=== PATIENT | male | born 1985 ===

== ENCOUNTER 2019-03-16 14:14 | Day surgery (SDC) | payer OTHER ==
[2019-03-16] VITALS (9 sets, daily range): BP systolic 94–143; BP diastolic 51–79
[~2019-03-16] VITALS: Ht 180.3 cm; Wt 84.1 kg
[2019-03-16] MEDS ORDERED: BUPIVAcaine/PF 2.5 mg/ml (0.25%) 30ml vial ONE (14:50)
[2019-03-16] MEDS ORDERED: cefazolin/dext.iso 2gm/100ml 100 ML IV ONE (14:50)
[2019-03-16] MEDS ORDERED: famotidine 10mg tablet PO ONE (14:55)
[2019-03-16] MEDS ORDERED: ringers solution, lacted 1,000 ML IV SCH ×2 (15:05→16:08)
[2019-03-16] MEDS ORDERED: dexamethasone sod phosphate 10mg/ml inj ONE (15:08)
[2019-03-16] MEDS ORDERED: sevoflurane 250ml liquid IH ONE (15:08)
[2019-03-16 15:10] LABS: BASOPHILS # (AUTO) 0.1 X10'3 (0-0.2); BASOPHILS % (AUTO) 1.1 % (0-1); EOSINOPHILS # (AUTO) 0.3 X10'3 (0-0.9); EOSINOPHILS % (AUTO) 4.8 % (0-6); LYMPHOCYTES # (AUTO) 1.6 X10'3 (1.1-4.8); LYMPHOCYTES % (AUTO) 29.1 % (21-51); MEAN CORPUSCULAR HEMOGLOBIN 27.6 PG (27.0-31.0); MEAN CORPUSCULAR HGB CONC 33.5 g/dL (33.0-36.5); MEAN CORPUSCULAR VOLUME 82.5 FL (78-98); MEAN PLATELET VOLUME 7.3 FL (7.4-10.4); MONOCYTES # (AUTO) 0.5 X10'3 (0-0.9); MONOCYTES % (AUTO) 10.1 % (2-12); NEUTROPHILS % (AUTO) 54.9 % (42-75); PRE OP HEMATOCRIT 36.6 % (42.0-52.0); PRE OP HEMOGLOBIN 12.3 g/dL (14.0-17.9); PRE OP PLATELET COUNT 297 X10'3 (140-440); RED BLOOD COUNT 4.44 X10'6 (4.70-6.10)
[2019-03-16] MEDS ORDERED: propofol inj 20 ML IV ONE (15:10)
[2019-03-16] MEDS ORDERED: LIDOcaine 2% (20mg/ml) 5ml vial ONE (15:10)
[2019-03-16] MEDS ORDERED: fentaNYL /PF 50mcg/ml 5ml ampule ONE (15:10)
[2019-03-16] MEDS ORDERED: ROPIVAcaine 0.5% (5mg/ml) 30ml vial ONE ×2 (15:10→16:46)
[2019-03-16] MEDS ORDERED: midazolam 2 mg/2 ml injection ONE (15:10)
[2019-03-16 15:27] LABS: ALBUMIN 3.5 G/DL (3.4-5.0); ALBUMIN/GLOBULIN RATIO 1.1 (1.1-1.5); ALKALINE PHOSPHATASE 79 IU/L (46-116); BLOOD UREA NITROGEN 13 MG/DL (7-18); BUN/CREATININE RATIO 13.1 (5.4-32.0); CALCIUM 8.7 MG/DL (8.5-10.1); CHLORIDE 108 MMOL/L (99-107); CREATININE 0.99 MG/DL (0.60-1.10); PRE OP ALT 43 U/L (30-65); PRE OP ANION GAP 7 (8-16); PRE OP AST 26 U/L (10-37); PRE OP BILIRUB, TOTAL 0.6 MG/DL (0.0-1.0); PRE OP GLUCOSE 80 MG/DL (70-104); PRE OP POTASSIUM 4.3 MMOL/L (3.4-5.1); PRE OP SODIUM 143 MMOL/L (135-145); TOTAL CARBON DIOXIDE 28.5 MMOL/L (24-32); TOTAL PROTEIN 6.7 G/DL (6.4-8.2); eGFR 87 ML/MIN
[2019-03-16] MEDS ORDERED: ondansetron/PF 4mg/2ml inj ONE (15:54)
[2019-03-16] MEDS ORDERED: meperidine/PF 25mg/ml syringe IV PRN ×3 (16:10)
[2019-03-16] MEDS ORDERED: ondansetron/PF 4mg/2ml inj IV PRN (16:10)
[2019-03-16] MEDS ORDERED: proCHLORperazine 10 MG/2 ml inj IV PRN (16:10)
[2019-03-16] MEDS ORDERED: morphine 4 MG/ML inj SYRINge IV PRN ×2 (16:10)
--- NOTE | 2019-03-16 17:25 | NUR ---
Received from OR via BED, accompanied by Anesthesiologist DR JOHNSON-- and report given by Anesthesiolgist. PATIENT A&OX4, DENIES PAIN, V/S WNL, NEUROVASCULAR CHECKS INTACT, 20G PIV LUE, SCD ON, DRESSING TO LEFT KNEE CDI
[2019-03-16] MEDS ORDERED: ketorolac trometh. 30mg/ml inj. IV ONE (18:00)
--- NOTE | 2019-03-16 18:25 | NUR ---
PATIENT A&OX4, DENIES PAIN, V/S WNL, NEUROVASCULAR CHECKS INTACT, 20G PIV LUE D/C, SCD OFF, DRESSING TO LEFT KNEE CDI. 2 CRUTCHES GIVEN AND PATIENT TO BE NONE WEIGHT BEARING AND HE AND GUARDS UNDERSTAND THIS. I HAVE REVIEWED D/C INSTRUCTIONS WITH PATIENT AND GUARDS AND THEY HAVE VERBALIZED UNDERSTANDING. PATIENT D/C TO GROUP HOME TRANSPORT WITH ALL BELONGINGS AND GUARDS GAVE TRANSPORT.
== END 2019-03-16 18:25 ==
LOC: PAS 14:14
PROVIDERS: ATTEND Orthopaedic Surgery
DX: S83.252A Bucket-handle tear of lateral meniscus, current injury, left knee, initial encounter (principal); M93.262 Osteochondritis dissecans, left knee; F32.9 Major depressive disorder, single episode, unspecified; G89.18 Other acute postprocedural pain; X58.XXXA Exposure to other specified factors, initial encounter; Y93.89 Activity, other specified; Y92.89 Other specified places as the place of occurrence of the external cause; Y99.8 Other external cause status
CPT/HCPCS: 27416; 29881; 36415; 64447; 80053; 85025; J1100; J1885; J2001; J2250; J2405; J2704; J3010; J3490; J7120; A4215; A4618; A6449; A7000; J2795